=== PATIENT | female | born 1980 | race Caucasian/White ===

== ENCOUNTER 2022-04-24 07:26 | Emergency (ER) | payer MEDICAID ==
[~2022-04-24] VITALS: Ht 160 cm; Wt 75.0 kg
[2022-04-24] MEDS ORDERED: ACETAMINOPHEN 325MG TABLET PO ONE (09:15)
[2022-04-24] MEDS ORDERED: TOPUD PO (10:56)
[2022-04-24] MEDS ORDERED: IBUP-2028 MT (10:56)
[2022-04-24 11:19] VITALS: BP 119/81
== END 2022-04-24 11:21 | disposition home or self-care (01) ==
LOC: ER 07:26
DX: S00.93XA Contusion of unspecified part of head, initial encounter (principal); Y04.0XXA Assault by unarmed brawl or fight, initial encounter; Y93.89 Activity, other specified; Y92.89 Other specified places as the place of occurrence of the external cause; Y99.8 Other external cause status
CPT/HCPCS: 70486; 81025; 99284